=== PATIENT | female | born 1985 | race Caucasian/White ===

== ENCOUNTER → 2021-03-24 04:01 | Outpatient (CLI) | payer BC, SELFPAY ==
[2021-03-24 22:11] LABS: SARS-CoV-2 RNA PCR Positive
== END ==
PROVIDERS: PCP Physician Assistant; Visit Provider Physician Assistant
DX: U07.1 COVID-19 (principal)
CPT/HCPCS: C9803; U0003; U0005

== ENCOUNTER 2021-09-07 16:15 | Outpatient (CLI) | payer BC, SELFPAY ==
[2021-09-07 17:14] LABS: Basophils Percent Auto 0.4 % (0.2-1.2); Eosinophils Absolute Auto 0.5 K/mm3 (0-0.3); Eosinophils Percent Auto 6.7 % (0-4.4); Hematocrit 38.1 % (37.0-47.0); Hemoglobin 12.7 g/dL (12.0-15.0); Immature Granulocyte Absolute 0.01 K/mm3 (0.00-0.031); Immature Granulocyte Percent A 0.1 % (0-0.5); Lymphocytes Absolute Auto 2.09 K/mm3 (0.9-3.2); Lymphocytes Percent Auto 31.1 % (18.3-44.2); Mean Corpuscular HGB Conc 33.3 g/dl (32-36); Mean Corpuscular Hemoglobin 29.3 pg (26-34); Mean Corpuscular Volume 87.8 fl (80-100); Mean Platelet Volume 9.2 fl (7.4-10.4); Monocytes Absolute Auto 0.4 K/mm3 (0.1-0.6); Neutrophils Absolute Auto 3.7 K/mm3 (1.3-6.7); Neutrophils Percent Auto 55.7 % (45.5-73.1); Platelet Count Result 245 k/mm3 (150-375); Red Blood Count 4.34 M/mm3 (4.2-5.4); Red Cell Distribution Width 12.3 % (11.5-14.5); White Blood Count 6.7 K/mm3 (4.5-10.0)
[2021-09-07 17:24] LABS: Alanine Aminotransferase 17 U/L (6-35); Albumin Level 4.4 g/dL (3.5-5.1); Alkaline Phosphatase 44 U/L (38-126); Anion Gap 8 mmol/L (8-16); Aspartate Amino Transferase 23 U/L (14-36); Bilirubin,Total 0.1 mg/dL (0.2-1.3); Blood Urea Nitrogen 13 mg/dL (7-17); Calcium 8.9 mg/dL (8.4-10.2); Carbon Dioxide 23 mmol/L (22-30); Chloride 105 mmol/L (98-107); Estimated Glomerular Filt Rate > 60; Glucose 93 mg/dL (65-110); Potassium 3.9 mmol/L (3.4-5.0); Sodium 136 mmol/L (137-145)
[2021-09-07 18:27] LABS: Free T4 Free Thyroxine 1.15 ng/mL (0.78-2.19)
[2021-09-07 18:30] LABS: Folic Acid 9.6 ng/mL (2.76->20)
[2021-09-09 04:36] LABS: Insulin Level Total 9.3 uIU/mL (<=19.6); Thyroid Peroxidase Antibodies <1 IU/mL (<9)
== END 2021-09-07 16:16 | disposition home or self-care (01) ==
PROVIDERS: PCP Physician Assistant; Visit Provider Internal Medicine Endocrinology, Diabetes & Metabolism
DX: R53.83 Other fatigue (principal); R63.5 Abnormal weight gain; N92.6 Irregular menstruation, unspecified
CPT/HCPCS: 36415; 80053; 82607; 82746; 83525; 84439; 84443; 84481; 85025; 86376

== ENCOUNTER 2021-09-13 08:36 | Outpatient (CLI) | payer BC, SELFPAY ==
--- NOTE | ~2021-09-13 | US_ITS ---
EXAMINATION: US thyroid DATE: 09/13/2021 09:26 INDICATION: Nontoxic goiter. TECHNIQUE: Multiple ultrasound images of the thyroid were obtained. COMPARISON: None. FINDINGS: The right thyroid lobe measures 4.8 x 1.2 x 1.3 cm. The left thyroid lobe measures 3.8 x 1.2 x 1.4 c m. The isthmus measures 0.3 cm. There is normal echotexture and echogenicity throughout the thyroid g land. 3 cm cystic lesion in the upper right thyroid gland. No other discrete nodule. Normal vascular flow is present. IMPRESSION: 1. 3 mm cystic lesion in the upper right thyroid gland, of doubtful clinical significance, no need fo r FNA or follow-up. 2. Otherwise normal thyroid ultrasound findings. Reviewed, dictated and finalized at location K. IMPRESSION: 1. 3 mm cystic lesion in the upper right thyroid gland, of doubtful clinical si gnificance, no need for FNA or follow-up. 2. Otherwise normal thyroid ultrasound findings.
== END 2021-09-13 08:37 | disposition home or self-care (01) ==
PROVIDERS: PCP Physician Assistant; Visit Provider Internal Medicine Endocrinology, Diabetes & Metabolism
DX: R63.5 Abnormal weight gain (principal); E07.9 Disorder of thyroid, unspecified
CPT/HCPCS: 36415; 76536; 82533

== ENCOUNTER 2021-10-24 07:12 | Outpatient (CLI) | payer BC, SELFPAY ==
[2021-10-24 08:24] LABS: Cortisol Random 0.67 ug/dL
[2021-10-24 12:13] LABS: Alanine Aminotransferase 72 U/L (6-35); Albumin Level 4.6 g/dL (3.5-5.1); Alkaline Phosphatase 53 U/L (38-126); Anion Gap 10 mmol/L (8-16); Aspartate Amino Transferase 37 U/L (14-36); Bilirubin,Total 0.4 mg/dL (0.2-1.3); Blood Urea Nitrogen 12 mg/dL (7-17); Calcium 9.3 mg/dL (8.4-10.2); Carbon Dioxide 25 mmol/L (22-30); Chloride 99 mmol/L (98-107); Estimated Glomerular Filt Rate > 60; Glucose 102 mg/dL (65-110); Potassium 4.5 mmol/L (3.4-5.0); Sodium 134 mmol/L (137-145)
[2021-10-24 12:20] LABS: Basophils Absolute Auto 0.1 K/mm3 (0.0-0.1); Basophils Percent Auto 0.7 % (0.2-1.2); Eosinophils Absolute Auto 0.1 K/mm3 (0-0.3); Eosinophils Percent Auto 1.7 % (0-4.4); Hemoglobin 13.6 g/dL (12.0-15.0); Immature Granulocyte Absolute 0.02 K/mm3 (0.00-0.031); Immature Granulocyte Percent A 0.3 % (0-0.5); Lymphocytes Absolute Auto 2.04 K/mm3 (0.9-3.2); Lymphocytes Percent Auto 26.8 % (18.3-44.2); Mean Corpuscular HGB Conc 32.4 g/dl (32-36); Mean Corpuscular Hemoglobin 29.3 pg (26-34); Mean Corpuscular Volume 90.5 fl (80-100); Mean Platelet Volume 9.4 fl (7.4-10.4); Monocytes Absolute Auto 0.3 K/mm3 (0.1-0.6); Monocytes Percent Auto 4.1 % (2.6-8.5); Neutrophils Absolute Auto 5.1 K/mm3 (1.3-6.7); Neutrophils Percent Auto 66.4 % (45.5-73.1); Platelet Count Result 329 k/mm3 (150-375); Red Blood Count 4.64 M/mm3 (4.2-5.4); White Blood Count 7.6 K/mm3 (4.5-10.0)
[2021-10-24 12:44] LABS: Free T4 Free Thyroxine 1.12 ng/mL (0.78-2.19)
[2021-10-24 13:19] LABS: Folic Acid 7.7 ng/mL (2.76->20)
[2021-10-27 13:03] LABS: DHEA-Sulfate 144 mcg/dL (23-266)
[2021-10-28 07:47] LABS: FSH 10.7 mIU/mL (***); LH 9.9 mIU/mL (***); Progesterone 0.2 ng/mL (***); Prolactin 15.5 ng/mL (***)
[2021-10-28 13:37] LABS: Insulin Level Total 7.8 uIU/mL (<=19.6)
[2021-10-28 14:12] LABS: Testosterone Total 24 ng/dL (2-45)
[2021-11-03 00:38] LABS: Estradiol, Ultrasensitive 67 pg/mL
== END 2021-10-24 07:13 | disposition home or self-care (01) ==
LOC: ANHLAB 07:19
PROVIDERS: PCP Physician Assistant; Visit Provider Internal Medicine Endocrinology, Diabetes & Metabolism
DX: N92.6 Irregular menstruation, unspecified (principal); R63.5 Abnormal weight gain; R53.83 Other fatigue
CPT/HCPCS: 36415; 80053; 80299; 82024; 82533; 82607; 82627; 82670; 82746; 83001; 83002; 83525; 84144; 84146; 84402; 84403; 84439; 84443; 84481; 85025

== ENCOUNTER 2021-11-27 15:02 | Outpatient (CLI) | payer BC, SELFPAY ==
--- NOTE | ~2021-11-27 | US_ITS ---
EXAMINATION: US transvaginal DATE: 11/27/2021 15:30 INDICATION: Irregular periods. TECHNIQUE: Multiple transvaginal sonographic images of the pelvis were obtained. COMPARISON: None. FINDINGS: The uterus measures 7.0 x 2.9 x 4.2 cm. There is no free fluid in the pelvis. The endometrial complex measures 5 mm in thickness. The right ovary measures 1.6 x 2.0 x 1.3 cm. The left ovary measures 1.6 x 1.4 x 1.5 cm. There is normal vascular flow in the ovaries. IMPRESSION: 1. Normal pelvis. Reviewed, dictated and finalized at location A. IMPRESSION: 1. Normal pelvis.
== END 2021-11-27 15:03 ==
LOC: MICIMG 15:04
PROVIDERS: PCP Physician Assistant; Visit Provider Internal Medicine Endocrinology, Diabetes & Metabolism
DX: N92.6 Irregular menstruation, unspecified (principal)
CPT/HCPCS: 76830

== ENCOUNTER 2022-08-14 07:55 | Outpatient (CLI) | payer BC, SELFPAY ==
--- NOTE | ~2022-08-14 | CT_ITS ---
EXAMINATION: CT abdomen pelvis w con DATE: 08/14/2022 08:20 INDICATION: Right lower quadrant abdominal pain. TECHNIQUE: Computed tomography (CT) of the abdomen and pelvis was performed with 100 mL Omnipaque 350 intravenous contrast. Automated exposure control and iterative reconstruction technique were employe d. The dose-length product was 650.79 mGy-cm. COMPARISON: None. FINDINGS: The visualized portions of the lung bases demonstrate mild atelectasis. No pleural effusion . The heart size is normal. No pericardial effusion. There are bilateral breast implants. The liver, gallbladder, spleen, pancreas, adrenal glands, and right kidney are normal. There is a 12 mm cyst in left kidney. There are no dilated loops of bowel. The appendix is normal. There is a 1.8 cm dominant follicle in right ovary. There is physiologic fluid in the pelvis. There are no pathologically enlarg ed lymph nodes. There is a chronic compression fracture of L1 with 1/5 loss of height. IMPRESSION: 1. No specific etiology for the patient's symptoms. Reviewed, dictated and finalized at location D.
== END 2022-08-14 07:56 | disposition home or self-care (01) ==
PROVIDERS: PCP Physician Assistant; Visit Provider Nurse Practitioner
DX: R10.31 Right lower quadrant pain (principal)
CPT/HCPCS: 74177; Q9967

== ENCOUNTER 2022-08-16 02:52 | Day surgery (SDC) | payer BC, SELFPAY ==
[2022-08-03 12:31] VITALS: BMI 26.8
--- NOTE | 2022-08-15 20:12 | PM.HPGS ---
History of Present Illness History of Present Illness Consent: Risks, benefits, and alternatives have been discussed and questions answered. Patient agrees to proceed with procedure. Chief complaint: RLQ abdom.tenderness,abdom.distension, dysphagia Narrative: Yvette Oliveros is a 37 year old female with dysphagia for pills, bloating, and low elastase concerning for EPI and bowel habit changes. . She Had gone to endo for excessive fatigue, low energy, low lipido and mentioned change in bowel habits that were dark and foul smelling along with abdominal bloating. reviewed pancreatic elastase completed 12/2021 and was around 238 (normal > 200). she was placed on creon and metformin for insulin problems per patient and took both for 1 month with no improvement in abdominal bloating and states one of the medications caused her to have extreme nausea but stopped-nausea has since improved Review of Systems Review of Systems: All systems reviewed & are unremarkable except as noted in HPI and below PMFSH Past Medical History Medical History Abdominal bloating Breast implant status Constipation Dysphagia Family hx of colon cancer Fatigue Leaky heart valve RLQ abdominal tenderness Torn ACL Surgical History Surgical History S/P ACL surgery Family History Family History Other Heart disease Malignant neoplasm of prostate Social History Social History Smoking status: Never smoker Alcohol intake: current Alcohol use details: socially Substance use: former Substance use type: marijuana Living arrangements: with family Occupation/Education: occupation Gender identity (if verbalized by the patient): Female Sexual Orientation (if Verbalized by the Patient): Straight or Heterosexual Spiritual care concerns: No Meds Home Medications and Allergies Home Medications Medication Instructions Recorded Confirmed Type drospirenone (contraceptive) 4 mg 1 tablet PO DAILY #84 tabs 03/01/22 08/03/22 Rx (28) tablet (Slynd) lisdexamfetamine 20 mg capsule 20 mg PO DAILY 08/03/22 08/03/22 History (Vyvanse) Allergies Allergy/AdvReac Type Severity Reaction Status Date / Time No Known Allergies Allergy Verified 08/16/22 11:56 Exam Const: General: alert Orientation/consciousness: patient oriented x3 Resp: Auscultation: clear to auscultation bilaterally Cardio: Rhythm: regular rhythm GI: GI Palp: Yes Soft to palpation and No Tenderness to palpation present (GI) Neuro: General: patient oriented x3 Assessment and Plan Assessment and plan (1) Dysphagia: Qualifiers: Dysphagia type: esophageal phase Qualified Code(s): R13.19 - Other dysphagia Code(s): R13.10 - Dysphagia, unspecified Status: Acute Assessment and Plan: EGD with possible biopsy or dilatation or cautery. (2) Family hx of colon cancer: Code(s): Z80.0 - Family history of malignant neoplasm of digestive organs Status: Acute Assessment and Plan: Colonoscopy with possible biopsy or polypectomy or cautery or injection of substances.
[2022-08-16 12:02] VITALS: BP 118/77; PULSE 85; RESP 18; TEMP 36.3; O2SAT 99
[2022-08-16] MEDS: LACTATED RINGERS 1,000 ML 150 ML IV CONT (12:18)
--- NOTE | 2022-08-16 12:51 | P.PNAN_ITS ---
Anes - Initial Pre Proc Eval Procedure: Operation Date: 08/16/22 13:30 Proposed Procedures p Esophagogastroduodenoscopy & Colonoscopy - Andrew Hennessy MD Date/Time: 08/16/22 12:51 Surgeon: Andrew Hennessy MD Pre Op Diagnosis: RLQ abdom.tenderness,abdom.distension, dysphagia Patient Data Age: 37 Gender: F Height: 1.73 m Weight: 76 kg Last Vital Signs Temp 97.3 F L 08/16/22 12:02 Pulse 85 08/16/22 12:02 Resp 18 08/16/22 12:02 BP 118/77 08/16/22 12:02 Pulse Ox 99 08/16/22 12:02 O2 Del Method Room Air 08/16/22 12:02 Allergies Allergy/AdvReac Type Severity Reaction Status Date / Time No Known Allergies Allergy Verified 08/16/22 11:56 Home Medications Medication Instructions Recorded Confirmed Type drospirenone (contraceptive) 4 mg 1 tablet PO DAILY #84 tabs 03/01/22 08/03/22 Rx (28) tablet (Slynd) lisdexamfetamine 20 mg capsule 20 mg PO DAILY 08/03/22 08/03/22 History (Vyvanse) Patient hx anesthesia problems: none Family hx anesthesia problems: none Results Review: All pre-operative results and documents have been reviewed as part of the pre- operative evaluation. PENDING SALE TO [facility] Past Medical History Medical History (Updated 08/01/22 @ 09:57 by Jaquelin Ross APRN) Abdominal bloating Breast implant status Constipation Dysphagia Family hx of colon cancer Fatigue Leaky heart valve RLQ abdominal tenderness Torn ACL Surgical History Surgical History S/P ACL surgery Family History Family History Other Heart disease Malignant neoplasm of prostate Social History Social History Smoking status: Never smoker Alcohol intake: current Alcohol use details: socially Substance use: former Substance use type: marijuana Living arrangements: with family Occupation/Education: occupation Gender identity (if verbalized by the patient): Female Sexual Orientation (if Verbalized by the Patient): Straight or Heterosexual Spiritual care concerns: No Anes - Eval Final PreProcedure Day of Procedure 08/16/22 12:51 Patient weight: normal Heart: regular rate and rhythm Lungs: clear to auscultation Airway: Mallampati scale class II Neurological: alert and oriented Last oral intake: >/= 8 hours ASA classification: II Emergent: no Anesthetic plan: proceed Anesthesia type and monitoring: general GIVS and standard monitoring Results Review: All pre-operative results and documents have been reviewed as part of the pre- operative evaluation. Informed Consent: The patient's anesthetic plan and its attendant risks and benefits were discussed with the patient/family/POA. Questions were solicited and answers provided to the satisfaction of the patient/family/POA.
[2022-08-16] MEDS: SIMETHICONE ORAL SUSPENSION 20 MG/0.3 ML 30 ML BOTTLE 0.6 ML IRRIGATION (13:21)
--- NOTE | 2022-08-16 13:26 | SUR.OPER ---
EGD START: 1308; END: 1311. COLONOSCOPY START: 1317; END: 1325.
[2022-08-16 13:27] VITALS: BP 105/64; PULSE 79; RESP 20; O2SAT 100
[2022-08-16 13:37] VITALS: BP 104/75; PULSE 73; RESP 20; O2SAT 100
[2022-08-16 13:47] VITALS: BP 101/65; PULSE 62; RESP 20; O2SAT 100
== END 2022-08-16 14:06 | disposition home or self-care (01) ==
PROVIDERS: PCP Physician Assistant; Visit Provider Internal Medicine Gastroenterology
PROC: 0DJ08ZZ Inspection of Upper Intestinal Tract, Via Natural or Artificial Opening Endoscopic (ICD-10-PCS; CPT 43235; principal; 2022-08-16 13:30)
DX: R19.4 Change in bowel habit (principal); K21.9 Gastro-esophageal reflux disease without esophagitis; R13.10 Dysphagia, unspecified; Z80.0 Family history of malignant neoplasm of digestive organs
CPT/HCPCS: 45378; 43239; 87081; 88305; J2704; J7120